=== PATIENT | male | born 2000 | race Caucasian/White ===

== ENCOUNTER → 2022-05-17 06:45 | Outpatient (CLI) | payer OTHER, SELFPAY ==
[2022-05-21 21:08] LABS: Neisseria gonorrhoeae, NAA Negative (Negative)
== END ==
PROVIDERS: PCP Nurse Practitioner; Visit Provider Nurse Practitioner
DX: R30.0 Dysuria (principal); N39.0 Urinary tract infection, site not specified
CPT/HCPCS: 87086; 87491; 87591